=== PATIENT | female | born 1945 | race Caucasian/White ===

== ENCOUNTER 2018-12-19 13:58 | Emergency (ER) | payer OTHER ==
[~2018-12-19] VITALS: Ht 144.8 cm; Wt 30.8 kg
[2018-12-19 14:19] VITALS: Ht 144.8 cm; Wt 30.8 kg
[2018-12-19 15:03] LABS: BASOPHIL % 0.6 % (0-2); PLATELET COUNT 194 x10^3mcL (130-400); RED CELL DISTRIBUTION WIDTH 13.6 % (11.5-14.5)
[2018-12-19 15:05] LABS: CARBON DIOXIDE 30.8 mmol/L (21-32); CHLORIDE SERUM 106 mmol/L (98-107); CREATININE SERUM 0.8 mg/dL (0.6-1.0); GLUCOSE SERUM 91 mg/dL (74-106); POTASSIUM SERUM 3.9 mmol/L (3.5-5.1); SODIUM SERUM 143 mmol/L (136-145)
[2018-12-19 15:09] LABS: ALBUMIN 3.7 g/dL (3.4-5.0); ALKALINE PHOSPHATASE 59 U/L (46-116); ALT/SGPT 17 U/L (14-59); AST/SGOT 28 U/L (15-37); BILIRUBIN TOTAL 0.3 mg/dL (0.20-1.00); LIPASE 184 IU/L (73-393); TOTAL PROTEIN, SERUM 7.6 g/dL (6.4-8.2)
[2018-12-19 18:37] VITALS: BP 143/119
[2018-12-19 19:02] LABS: UA SPECIFIC GRAVITY <=1.005 (1.005-1.035); microscopic required? YES; urine erythrocyte 1+ (NEGATIVE)
== END 2018-12-19 19:40 | disposition home or self-care (01) ==
LOC: ED 13:58
PROVIDERS: Emergency Medicine
DX: R10.31 Right lower quadrant pain (principal); K59.00 Constipation, unspecified; F17.210 Nicotine dependence, cigarettes, uncomplicated; J44.9 Chronic obstructive pulmonary disease, unspecified; Z71.6 Tobacco abuse counseling; Z90.711 Acquired absence of uterus with remaining cervical stump; Z90.89 Acquired absence of other organs
CPT/HCPCS: 99406; J1885; J2060; J7030; Q9967

== ENCOUNTER 2020-01-01 14:28 | Emergency (ER) | payer OTHER ==
[~2020-01-01] VITALS: Ht 149.9 cm; Wt 32.7 kg
[2020-01-01 14:30] VITALS: Ht 149.9 cm; Wt 32.7 kg
[2020-01-01 16:54] LABS: CALCIUM 9.3 mg/dL (8.5-10.1); CARBON DIOXIDE 29.8 mmol/L (21-32); CHLORIDE SERUM 102 mmol/L (98-107); CREATININE SERUM 0.9 mg/dL (0.6-1.0); GLUCOSE SERUM 92 mg/dL (74-106); POTASSIUM SERUM 3.8 mmol/L (3.5-5.1); SODIUM SERUM 141 mmol/L (136-145)
[2020-01-01 16:57] LABS: BASOPHIL % 0.1 % (0-2); PLATELET COUNT 263 x10^3mcL (130-400); RED CELL DISTRIBUTION WIDTH 14.6 % (11.5-14.5)
[2020-01-01 16:58] LABS: ALBUMIN 4.5 g/dL (3.4-5.0); ALKALINE PHOSPHATASE 59 U/L (46-116); ALT/SGPT 36 U/L (14-59); AST/SGOT 47 U/L (15-37); BILIRUBIN TOTAL 0.9 mg/dL (0.20-1.00); C REACTIVE PROTEIN 3.7 mg/dL (<=0.9); LACTIC DEHYDROGENASE (LDH) 266 U/L (100-190)
[2020-01-01 17:05] LABS: TOTAL PROTEIN, SERUM 8.6 g/dL (6.4-8.2)
[2020-01-01 17:22] LABS: microscopic required? YES; urine erythrocyte 1+ (NEGATIVE)
[2020-01-01 18:33] VITALS: BP 138/78
== END 2020-01-01 18:33 | disposition left against medical advice (07) ==
LOC: ED 14:28
PROVIDERS: Emergency Medicine
DX: J44.1 Chronic obstructive pulmonary disease with (acute) exacerbation (principal); R09.02 Hypoxemia; E03.9 Hypothyroidism, unspecified; R64 Cachexia; F17.210 Nicotine dependence, cigarettes, uncomplicated; Z71.6 Tobacco abuse counseling
CPT/HCPCS: 36600; 83880; 85378; 87804; 99406; J0456; J0696; J2930; J3475; J7030; J7050; J7060; Q0092; U0003-CS